=== PATIENT | male | born 1965 | race Caucasian/White ===

== ENCOUNTER 2019-03-08 11:05 | Day surgery (SDC) | payer BC, SELFPAY ==
[~2019-03-08] VITALS: Ht 182.9 cm; Wt 99.0 kg
[~2019-03-08 11:05] MED LIST: LACTULOSE20 GM/301 PO
[2019-03-08] MEDS ORDERED: GABA100 (11:33)
[2019-03-08] MEDS ORDERED: Inderal 20 mg T20 MG (11:33)
== END 2019-03-08 13:32 | disposition home or self-care (01) ==
LOC: ORSCSDS 11:05
PROVIDERS: Student in an Organized Health Care Education/Training Program
PROC: 0DB68ZX Excision of Stomach, Via Natural or Artificial Opening Endoscopic, Diagnostic (ICD-10-PCS; principal; 2019-03-08 12:45)
PROC: 0DBH8ZX Excision of Cecum, Via Natural or Artificial Opening Endoscopic, Diagnostic (ICD-10-PCS; principal; 2019-03-08 12:45)
PROC: 06L38CZ Occlusion of Esophageal Vein with Extraluminal Device, Via Natural or Artificial Opening Endoscopic (ICD-10-PCS; principal; 2019-03-08 12:45)
DX: K70.30 Alcoholic cirrhosis of liver without ascites (principal); K76.6 Portal hypertension; K31.89 Other diseases of stomach and duodenum; K29.70 Gastritis, unspecified, without bleeding; Z12.11 Encounter for screening for malignant neoplasm of colon; K64.8 Other hemorrhoids; K57.30 Diverticulosis of large intestine without perforation or abscess without bleeding; B19.20 Unspecified viral hepatitis C without hepatic coma; I50.9 Heart failure, unspecified; I10 Essential (primary) hypertension; F17.210 Nicotine dependence, cigarettes, uncomplicated; Z79.899 Other long term (current) drug therapy
CPT/HCPCS: 88305; 88342; J2001; J2250; J2704; J7040; J7120